=== PATIENT | male | born 1960 | race Caucasian/White ===

== ENCOUNTER 2016-07-27 14:11 | Emergency (ER) | payer BC ==
[2016-07-27 14:50] LABS: WBC (NOT ORDERED) (RFLEX) 0 (0-5)
[2016-07-27 14:59] LABS: BASOPHILS 0.8 %; BASOPHILS ABSOLUTE 0.08 10/3/uL (0.0-0.16); EOSINOPHILS 3.7 %; EOSINOPHILS ABSOLUTE 0.37 10/3/uL (0.0-0.53); HEMATOCRIT 43.9 % (40.0-51.0); HEMOGLOBIN 15.4 g/dL (13.6-17.8); IMMATURE GRANULOCYTES 0.2 %; IMMATURE GRANULOCYTES ABSOLUTE 0.02 10/3/uL (0.0-0.11); LYMPHOCYTES 28.3 %; LYMPHOCYTES ABSOLUTE 2.84 10/3/uL (0.67-4.30); MEAN CORPUS HGB CONC 35.1 g/dL (32.0-36.0); MEAN CORPUSCULAR HEMOGLOB 32.5 pg (26.0-34.0); MEAN CORPUSCULAR VOLUME 92.6 fL (80-100); MONOCYTES 9.7 %; MONOCYTES ABSOLUTE 0.97 10/3/uL (0.21-1.20); NEUTROPHILS 57.3 %; NEUTROPHILS ABSOLUTE 5.77 10/3/uL (2.02-8.40); PLATELET COUNT 279 10/3/uL (150-400); RBC DISTRIBUTION WIDTH 12.2 % (12.0-16.0); RED CELL COUNT 4.74 10/6/uL (4.7-6.1); WHITE BLOOD CELLS 10.1 10/3/uL (4.5-10.5)
[2016-07-27 15:03] LABS: MANUAL DIFF NO %
[2016-07-27 15:12] LABS: ASCORBIC ACID (UR NOT ORDER) NEG (NEG); BILIRUBIN, URINE NEGATIVE (NEG); ER URINALYSIS TAT 0 Hrs 23 Mins; KETONE, URINE TRACE MG/DL (NEG); LEUKOCYTE ESTERASE(NOT OR NEG (NEG); NITRITE (URINE) NEG (NEG)
[2016-07-27 15:15] LABS: A/G RATIO 1.1 (0.7-1.9); ALBUMIN 4.1 G/DL (3.5-5.0); ALKALINE PHOSPHATASE 99 U/L (45-117); BUN (BLOOD UREA NITROGEN) 16 MG/DL (6-23); CALCIUM, SERUM 8.7 MG/DL (8.5-10.4); CHLORIDE, SERUM 106 MMOL/L (96-112); CO2 (CARBON DIOXIDE) 26 MMOL/L (24-34); CREATININE 1.01 MG/DL (0.70-1.30); GFR AFRICAN AMERICAN 97 ML/MIN (>=60); GFR NON AFRICAN AMERICAN 83 ML/MIN (>=60); GLOBULIN 3.9 G/DL (2.5-4.1); GLUCOSE, SERUM 96 MG/DL (60-99); POTASSIUM, SERUM 3.7 MMOL/L (3.5-5.3); SGOT(AST) 17 U/L (5-40); SGPT(ALT) 19 U/L (5-65); SODIUM, SERUM 142 MMOL/L (135-148); TOTAL BILIRUBIN 0.8 MG/DL (0-1.2)
[2016-08-12] MEDS ORDERED: *DENIES (15:18)
[2016-10-09] MEDS ORDERED: NORV25 PO (16:38)
[2016-10-09] MEDS ORDERED: ASAB PO (16:39)
[2016-10-09] MEDS ORDERED: LIPITOR10 (16:39)
[2016-10-09] MEDS ORDERED: LIPITOR10 PO (16:39)
[2016-10-09] MEDS ORDERED: LOP25 PO (16:40)
== END 2016-07-27 16:50 | disposition home or self-care (01) ==
LOC: ER 14:11
PROVIDERS: Physician Assistant
DX: R31.9 Hematuria, unspecified (principal); F17.200 Nicotine dependence, unspecified, uncomplicated; Z88.5 Allergy status to narcotic agent; Z88.8 Allergy status to other drugs, medicaments and biological substances
CPT/HCPCS: 80053; 81001; 85025; 99283

== ENCOUNTER 2016-08-16 09:29 | Day surgery (SDC) | payer BC ==
[2016-08-12 09:27] LABS: HEMATOCRIT 43.5 % (40.0-51.0)
[2016-08-12 09:29] LABS: ASCORBIC ACID (UR NOT ORDER) NEG (NEG); BILIRUBIN, URINE NEGATIVE (NEG); KETONE, URINE NEGATIVE (NEG); LEUKOCYTE ESTERASE(NOT OR NEG (NEG); WBC (NOT ORDERED) (RFLEX) 2 (0-5)
--- NOTE | ~2016-08-16 | OP ---
Record Of Operation [facility] [address] [place]. [address] NAME: ASYA RUEDA : 62 STATUS : REG [facility] PAT#: [id number] AGE: 56 ADM/REG DATE : 08/16/16 MR#: [id number] REPORT SERV DATE: 08/16/16 DICTATED BY: SUNIL RAMIRES DATE: 08/16/16 REPORT STATUS : Draft TRANSCRIBED BY: MODL DATE: 08/16/16 DATE OF PROCEDURE: 08/16/2016 PREOPERATIVE DIAGNOSES: Gross hematuria and suspected bladder tumor. POSTOPERATIVE DIAGNOSIS: Bladder tumor, estimated 4 cm. OTHER DIAGNOSIS: Fossa navicularis stricture. PROCEDURES: 1. Urethral dilation. 2. Cystoscopy. 3. Transurethral resection of bladder tumor, approximately 4 cm. SURGEON: Sunil Ramires M.D. ANESTHESIA: General and local. BLOOD LOSS: Estimated 5 mL. FLUID REPLACEMENT: 600 mL of crystalloid. DRAINS: 18-Mexican Ramires catheter per urethra. INDICATION: 56-year-old male with gross hematuria and a CT scan revealing what appears to be a bladder tumor, finding 4 cm tumor on the left lateral wall just lateral to the course of the left ureter. TECHNIQUE: The patient was identified, brought to the operating room, administered general anesthetic agent by the Anesthesia Service, and intubated. He was positioned in dorsal lithotomy position. Penis, groin, and scrotum were prepped and draped in usual sterile fashion. I attempted to pass a 22-Mexican scope into the bladder. The fossa was strictured. I sounded the fossa navicularis to 28-Mexican Eric sounds and then inserted a 22-Mexican scope. The remainder of the urethra was normal. Prostatic urethra was mildly hypertrophied. The bladder was entered and surveyed with both 30 and 70-degree lens. There was some papillary growth just around the left ureteral orifice that was minor. There was a full grown bladder tumor on the left lateral wall. It was pedunculated. Its greatest diameter measured approximately 4 cm. The rest of the bladder was surveyed, and no other lesions were noted. The cystoscope was removed. I again sounded the urethra up to 28- Mexican Eric sounds and inserted 26-Mexican continuous flow resecting sheath and obturator. The obturator was removed, and the Rajan resectoscope and cutting loop was inserted. I then resected the bladder tumor. I collected all the tissue and sent it as bladder tumor, left lateral wall. I resected the base of the area and sent this as bladder tumor base. Fastidious hemostasis was achieved. Perivesical fat was noted, so I elected not to use mitomycin. Fastidious hemostasis was achieved. The bladder was cleared of all debris. The scope was removed, and 18-Mexican Ramires catheter was passed in the bladder. 10 Record Of Operation [address] [address] NAME: ASYA RUEDA : 62 STATUS : REG [facility] PAT#: [id number] AGE: 56 ADM/REG DATE : 08/16/16 MR#: [id number] REPORT SERV DATE: 08/16/16 DICTATED BY: SUNIL RAMIRES DATE: 08/16/16 REPORT STATUS : Draft TRANSCRIBED BY: LIANE DATE: 08/16/16 mL of sterile water inflated the balloon. It was manually irrigated clear. It will be left to drainage, and the patient was awakened and taken to recovery unit in stable and satisfactory condition. PF/MODL Sunil Ramires M.D. / [id number] CC: Sunil Ramires M.D.
[~2016-08-16 09:29] MED LIST: *DENIES
[2016-10-09] MEDS ORDERED: NORV25 PO (16:38)
[2016-10-09] MEDS ORDERED: ASAB PO (16:39)
[2016-10-09] MEDS ORDERED: LIPITOR10 PO (16:39)
[2016-10-09] MEDS ORDERED: LIPITOR10 (16:39)
[2016-10-09] MEDS ORDERED: LOP25 PO (16:40)
== END 2016-08-16 16:01 | disposition home or self-care (01) ==
LOC: SDC 09:29
PROVIDERS: Urology
PROC: 0TBB8ZZ Excision of Bladder, Via Natural or Artificial Opening Endoscopic (ICD-10-PCS; principal; 2016-08-16 10:45)
DX: C67.9 Malignant neoplasm of bladder, unspecified (principal); I44.7 Left bundle-branch block, unspecified; Z88.5 Allergy status to narcotic agent; F17.200 Nicotine dependence, unspecified, uncomplicated; Z88.8 Allergy status to other drugs, medicaments and biological substances
CPT/HCPCS: 81001; 85014; 85018; 88307; 93005; J2250; J2405; J2710; J3010